=== PATIENT | male | born 1935 | race Caucasian/White ===

== ENCOUNTER 2019-06-02 12:35 | Emergency (ER) | payer BC, MEDICARE ==
[2019-06-02] MEDS ORDERED: Aspirin 81 MG Tab.Chew PO ONE (12:46)
--- NOTE | 2019-06-02 12:50 | EDM.PDOC ---
ED HPI GENERAL MEDICAL PROBLEM - General Chief Complaint: Chest Pain Stated Complaint: CHEST PAIN Time Seen by Provider: 06/02/19 12:35 Source of Information: Reports: Patient History Limitations: Reports: No Limitations - History of Present Illness INITIAL COMMENTS - FREE TEXT/NARRATIVE: 83-year-old male with no known previous coronary artery disease history resides with chest pain for the past 12 hours, worsening over the past 2-3 hours. It is substernal radiating into the shoulders. Chronic shortness of breath, not worse than baseline. Some diaphoresis. No nausea or vomiting. On arrival an EKG was done which appears to have ST elevation with reciprocal changes in the anterior leads. Onset: Gradual (Symptoms started overnight and start time is somewhat nonspecific and unknown) Associated Symptoms: Reports: No Other Symptoms chest Pain Score (Numeric/FACES): 2 - Related Data Allergies Allergy/AdvReac Type Severity Reaction Status Date / Time No Known Allergies Allergy Verified 05/27/18 09:52 Home Meds: Home Meds Acetaminophen [Tylenol] 650 mg PO Q6H PRN 05/26/18 [History] Albuterol Sulfate [Proair Hfa] 2 puff IH Q6H PRN 05/26/18 [History] Budesonide/Formoterol [Symbicort 80-4.5 MCG] 2 puff INH BID 05/26/18 [History] Cholecalciferol (Vitamin D3) [Vitamin D3] 1,000 units PO DAILY 05/26/18 [History ] Docusate Sodium [Colace] 100 mg PO TID 05/26/18 [History] Fexofenadine [Charisse] 180 mg PO DAILY 05/26/18 [History] Gabapentin [Neurontin] 600 mg PO Q6H 05/26/18 [History] Hydrocortisone [Hydrocortisone 2.5% Crm] 1 applic TOP BID PRN 05/26/18 [History] Hydroxychloroquine Sulfate [Plaquenil] 200 mg PO DAILY 05/26/18 [History] Multivitamin with Minerals [Multiple Vitamin] 1 tab PO DAILY 05/26/18 [History] Omeprazole 40 mg PO DAILY 05/26/18 [History] Tacrolimus [Protopic 0.1% Oint] 1 applic TOP BID 05/26/18 [History] Terazosin [Hytrin] 5 mg PO BEDTIME 05/26/18 [History] azaTHIOprine [Imuran] 150 mg PO DAILY 05/26/18 [History] traMADol HCl [Ultram] 50 - 100 mg PO BID PRN 05/26/18 [History] Past Medical History HEENT History: Reports: Cataract, Impaired Vision Respiratory History: Reports: Other (See Below) 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 Denies: Fever, Chills HEENT: Reports: No Symptoms Respiratory: Reports: Shortness of Breath (Chronic and stable). Denies: Cough Cardiovascular: Reports: Chest Pain (Substernal radiating into both shoulders) GI/Abdominal: Denies: Abdominal Pain, Nausea, Vomiting : Reports: No Symptoms Skin: Reports: Diaphoresis Neurological: Reports: Other (Chronic numbness in his feet) Psychiatric: Reports: No Symptoms ED EXAM, GENERAL - Physical Exam Exam: See Below Exam Limited By: No Limitations General Appearance: Alert, No Apparent Distress Eye Exam: Bilateral Eye: Other (Appears to have a left "lazy eye" or disconjugate gaze) Head: Atraumatic Respiratory/Chest: No Respiratory Distress, Wheezing (A few scattered expiratory wheezes are heard) Cardiovascular: Regular Rate, Rhythm, Tachycardia GI/Abdominal: Soft, Non-Tender Extremities: Normal Inspection, Arm Pain. No: Pedal Edema Neurological: Alert, Oriented, No Motor/Sensory Deficits Psychiatric: Normal Affect, Normal Mood Skin Exam: Warm, Dry EKG INTERPRETATION ST-T: Elevated (Inferior elevation in leads 2 and aVF, reciprocal changes in anterior leads.) Comparison: NA - No Prior EKG Course - Vital Signs Last Recorded V/S: Last Vital Signs Temp 97.8 F 06/02/19 12:50 Pulse 117 H 06/02/19 12:50 Resp 19 06/02/19 12:50 BP 112/80 06/02/19 12:50 Pulse Ox 94 L 06/02/19 12:50 - Orders/Labs/Meds Orders: Active Orders 24 hr Category Date Time Status EKG Documentation Completion [RC] STAT Care 06/02/19 12:47 Active Labs: Laboratory Tests 06/02/19 06/02/19 Range/Units 12:47 12:51 WBC 9.2 (4.5-11.0) K/uL RBC 3.60 L (4.30-5.90) M/uL Hgb 13.3 (12.0-15.0) g/dL Hct 37.3 L (40.0-54.0) % MCV 104 H (80-98) fL MCH 37 H (27-31) pg MCHC 36 (32-36) % Plt Count 222 (150-400) K/uL Neut % (Auto) 81 H (36-66) % Lymph % (Auto) 9 L (24-44) % Brule % (Auto) 9 H (2-6) % Eos % (Auto) 2 (2-4) % Baso % (Auto) 0 (0-1) % Sodium 132 L (140-148) mmol/L Potassium 4.2 (3.6-5.2) mmol/L Chloride 96 L (100-108) mmol/L Carbon Dioxide 26 (21-32) mmol/L Anion Gap 14.2 H (5.0-14.0) mmol/L BUN 16 (7-18) mg/dL Creatinine 1.2 (0.8-1.3) mg/dL Est Cr Clr Drug Dosing 47.31 mL/min Estimated GFR (MDRD) 58 L (>60) Glucose 113 H (74-106) mg/dL Calcium 9.3 (8.5-10.1) mg/dL Total Bilirubin 0.6 (0.2-1.0) mg/dL AST 35 (15-37) U/L ALT 24 (12-78) U/L Alkaline Phosphatase 77 (46-116) U/L Troponin I 0.843 H* (0.000-0.056) ng/mL Total Protein 8.2 (6.4-8.2) g/dL Albumin 3.2 L (3.4-5.0) g/dL Globulin 5.0 H (2.3-3.5) g/dL Albumin/Globulin Ratio 0.6 L (1.2-2.2) Meds: Medications Discontinued Medications Generic Name Dose Route Start Last Admin Trade Name Leann PRN Reason Stop Dose Admin Aspirin 324 mg 06/02/19 12:46 06/02/19 12:50 Aspirin PO 06/02/19 12:47 324 mg ONETIME ONE Administration Heparin Sodium (Porcine) 5,000 units 06/02/19 12:55 06/02/19 12:58 Heparin Sodium IVPUSH 06/02/19 12:56 5,000 units ONETIME ONE Administration Heparin Sodium/Dextrose 25,000 units in 500 mls @ 20 mls/hr 06/02/19 13:00 13:06 Heparin 25,000 Units In D5w 500 Ml IV 1,000 units/hr TITRATE ESTEBAN 20 mls/hr Administration Protocol 1,000 UNITS/HR - Re-Assessments/Exams Free Text/Narrative Re-Assessment/Exam: 06/02/19 13:05 The symptom patterns are typical of angina or IA, combined with the EKG a STEMI is likely. CBC CMP INR and troponin were obtained, the patient was given 324 mg of chewable aspirin. Phone consultation with cardiology in [facility] was obtained. EKG was faxed and awaiting further instructions. 06/02/19 13:[address] May, [facility] agreed a STEMI was possible and patient will be taken to the catheter lab. 5000 units of heparin were given as a bolus and 1000 units an hour and he was transferred urgently up to [place] in [place] for intervention. His pain was improved but still present. 06/02/19 13:55 As the patient was being discharged troponin returned elevated at 0.80. This was relayed to [place]. CBC was unremarkable. Departure - Departure Time of Disposition: 13:32 Disposition: DC/Tfer to Other Reason for Transfer *Q: Primary PCI Indicated Clinical Impression: Acute myocardial infarction Qualifiers: Myocardial infarction type: ST elevation myocardial infarction Involved coronary artery: unspecified coronary artery Qualified Code(s): I21.3 - ST elevation (STEMI) myocardial infarction of unspecified site Referrals: PCP,None [Primary Care Provider] - Forms: ED Department Discharge Care Plan Goals: patient will be urgently transfer to [facility] for acute coronary intervention and treatment, heparin will be running in route. - My Orders Last 24 Hours: My Active Orders 06/02/19 12:47 EKG Documentation Completion [RC] STAT - Assessment/Plan Last 24 Hours: My Active Orders 06/02/19 12:47 EKG Documentation Completion [RC] STAT
[2019-06-02] MEDS ORDERED: Heparin Sodium 5,000 Units/ML Vial IVPUSH ONE (12:55)
[2019-06-02] MEDS ORDERED: Heparin Sodium/D5W 25,000 UNITS/500 ML BAG IV SCH (13:00)
== END 2019-06-02 13:32 | disposition other institution (70) ==
LOC: JP.ED 12:35
DX: I21.3 ST elevation (STEMI) myocardial infarction of unspecified site (principal); Z79.899 Other long term (current) drug therapy
CPT/HCPCS: 36415; 80053; 84484; 85025; 93005; 96374; 99285; A9270; J1644

== ENCOUNTER 2020-03-26 06:50 | Day surgery (SDC) | payer MEDICARE, OTHER ==
[2020-03-26] MEDS ORDERED: fentaNYL 100 MCG/2 ML SDV ONE (06:52)
[2020-03-26] MEDS ORDERED: Propofol 200 MG/20 ML SDV ONE (06:52)
[2020-03-26] MEDS ORDERED: Sodium Chloride 0.9% 1,000 ML IV SCH (07:15)
--- NOTE | 2020-03-27 08:34 | OR ---
DATE OF PROCEDURE: 03/26/2020 SURGEON: Juan Ramon Cazares MD PROCEDURE: Esophagogastroduodenoscopy. FINDINGS: 1. Multiple gastric polyps (biopsied using cold biopsy forceps). 2. Inflammation at GE junction (biopsied multiple times using cold biopsy forceps). 3. Hiatal hernia, sliding, mild to moderate. COMPLICATIONS: None. DEVICE PROCESSING ENGINEER: None. ANESTHESIA: MAC. PREOPERATIVE DIAGNOSIS: Dysphagia. POSTOPERATIVE DIAGNOSIS: Dysphagia. RISKS: Risks, benefits, alternatives, and limitations including, but not limited to infection, bleeding, and perforation were explained to the patient who wished to proceed. PROCEDURE IN DETAIL: The patient was placed in left lateral decubitus position. EGD scope was introduced and advanced to the second part of the duodenum. No evidence of duodenitis or ulceration was noted. The scope was brought back to the stomach. The patient had multiple polyps, several of these were biopsied using cold biopsy forceps. On retroflex, the patient has a small hiatal hernia, which does slide. At the GE junction, there was inflammation and striation, this was biopsied in all 4 quadrants using cold biopsy forceps. The remaining esophagus was normal, and the patient tolerated the procedure well. Juan Ramon Cazares MD /[id number]
== END 2020-03-26 09:57 | disposition home or self-care (01) ==
LOC: JP.SDS 06:50
PROVIDERS: ATTEND Surgery
DX: K31.7 Polyp of stomach and duodenum (principal); K31.89 Other diseases of stomach and duodenum; Z11.59 Encounter for screening for other viral diseases; K29.70 Gastritis, unspecified, without bleeding; K44.9 Diaphragmatic hernia without obstruction or gangrene; K21.0 Gastro-esophageal reflux disease with esophagitis
CPT/HCPCS: 43239; J2704; J3010; J7030; U0002; 88305

== ENCOUNTER 2021-05-23 12:54 | Emergency (ER) | payer MEDICARE, OTHER ==
[2021-05-23] MEDS ORDERED: Lidocaine 2% Jelly 10 ML Urojet MUCMEM ONE (15:57)
--- NOTE | 2021-05-23 16:48 | EDM.PDOC ---
ED HPI GENERAL MEDICAL PROBLEM - General Chief Complaint: Genitourinary Problem Stated Complaint: CATHADER IN WRONG-BLEEDING Time Seen by Provider: 05/23/21 16:45 Source of Information: Reports: Patient, RN Notes Reviewed History Limitations: Reports: No Limitations - History of Present Illness INITIAL COMMENTS - FREE TEXT/NARRATIVE: 85-year-old gentleman presents emergency department today with catheter dysfunction he has a neurogenic bladder catheter is usually changed by his spouse however she could not get the catheter placed today and there was blood clots and blood coming from his penis. - Related Data Allergies Allergy/AdvReac Type Severity Reaction Status Date / Time enviromental Allergy Mild Sneezing Uncoded 05/23/21 14:52 Home Meds: Home Meds Acetaminophen [Tylenol] 650 mg PO Q6H PRN 05/26/18 [History] Albuterol Sulfate [Proair Hfa] 2 puff IH Q6H PRN 05/26/18 [History] Budesonide/Formoterol [Symbicort 80-4.5 MCG] 2 puff INH BID 05/26/18 [History] Cholecalciferol (Vitamin D3) [Vitamin D3] 1,000 units PO DAILY 05/26/18 [History] Docusate Sodium [Colace] 100 mg PO DAILY 05/26/18 [History] Gabapentin [Neurontin] 600 mg PO Q6H 05/26/18 [History] Hydroxychloroquine Sulfate [Plaquenil] 200 mg PO DAILY 05/26/18 [History] Multivitamin with Minerals [Multiple Vitamin] 1 tab PO DAILY 05/26/18 [History] Omeprazole 20 mg PO DAILY 05/26/18 [History] Terazosin [Hytrin] 5 mg PO BEDTIME 05/26/18 [History] azaTHIOprine [Imuran] 125 mg PO DAILY 05/26/18 [History] traMADol HCl [Ultram] 50 - 100 mg PO BID PRN 05/26/18 [History] Apixaban [Eliquis] 5 mg PO BID 03/26/20 [History] Cetirizine [ZyrTEC] 10 mg PO DAILY 03/26/20 [History] Metoprolol Succinate [Toprol Xl] 12.5 mg PO DAILY 03/26/20 [History] predniSONE [Prednisone] 5 mg PO ASDIRECTED 03/26/20 [History] Past Medical History HEENT History: Reports: Cataract, Impaired Vision Cardiovascular History: Reports: Arrhythmia, CAD, High Cholesterol Respiratory History: Reports: Other (See Below) 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 Gastrointestinal History: Reports: GERD, Hiatal Hernia Genitourinary History: Reports: Retention, Urinary Other Genitourinary History: continuous decker catheter Musculoskeletal History: Reports: Arthritis, Back Pain, Chronic, Neck Pain, Chronic Neurological History: Reports: None Immunologic History: Reports: Other (See Below) Other Immunologic History: Lupus Dermatologic History: Reports: Other (See Below) Other Dermatologic History: Lupus - Infectious Disease History Infectious Disease History: Reports: Chicken Pox, Measles, Mumps - Past Surgical History HEENT Surgical History: Reports: Cataract Surgery Cardiovascular Surgical History: Reports: Carotid Stents Respiratory Surgical History: Reports: None GI Surgical History: Reports: Appendectomy, Colonoscopy, EGD, Hernia Repair /Other, Other (See Below) Other GI Surgeries/Procedures: avelino Neurological Surgical History: Reports: None Musculoskeletal Surgical History: Reports: None Social & Family History - Family History Family Medical History: No Pertinent Family History - Tobacco Use Tobacco Use Status *Q: Never Tobacco User - Caffeine Use Caffeine Use: Reports: Coffee - Alcohol Use Days Per Week of Alcohol Use: 7 Number of Drinks Per Day: 1 Total Drinks Per Week: 7 - Recreational Drug Use Recreational Drug Use: No ED ROS GENERAL - Review of Systems Review Of Systems: See Below : Reports: Urinary Retention ED EXAM, RENAL/ - Physical Exam Exam: See Below Text/Narrative:: Initial examination by nursing staff revealed 150 cc of urine by bladder scan catheter was changed by nursing staff produce clear urine no difficulty passing the catheter. Exam Limited By: No Limitations General Appearance: Alert, WD/WN, No Apparent Distress Respiratory/Chest: No Respiratory Distress Course - Vital Signs Last Recorded V/S: Last Vital Signs Temp 96.4 F L 05/23/21 15:04 Pulse 81 05/23/21 15:04 Resp 16 05/23/21 15:04 BP 129/77 05/23/21 15:04 Pulse Ox 96 05/23/21 15:04 - Orders/Labs/Meds Orders: Active Orders 24 hr Category Date Time Status Bladder Scan [RC] ASDIRECTED Care 05/23/21 16:27 Active Decker Catheter Insertion [Insert Urinary Catheter] [OM. Care 05/23/21 16:30 Ordered PC] Q24H Urinary Catheter Assessment [RC] ASDIRECTED Care 05/23/21 16:29 Active Meds: Medications Discontinued Medications Generic Name Dose Route Start Last Admin Trade Name Leann PRN Reason Stop Dose Admin Lidocaine HCl 10 ml 05/23/21 15:57 05/23/21 16:11 Lidocaine 2% Jelly 10 Ml Urojet MUCMEM 05/23/21 15:58 10 ml ONETIME ONE Administration Departure - Departure Time of Disposition: 16:47 Disposition: Home, Self-Care 01 Condition: Fair Clinical Impression: Urinary catheter dysfunction Qualifiers: Encounter type: initial encounter Qualified Code(s): T83.018A - Breakdown (mechanical) of other urinary catheter, initial encounter - Discharge Information Instructions: Indwelling Urinary Catheter Care, Adult Referrals: PCP,None [Primary Care Provider] - Additional Instructions: Follow-up with primary care as needed call return to the emergency department worsening of symptoms Sepsis Event Note (ED) - Evaluation Sepsis Screening Result: No Definite Risk - Focused Exam Vital Signs: Vital Signs Temp Pulse Resp BP Pulse Ox 05/23/21 15:04 96.4 F L 81 16 129/77 96 - My Orders Last 24 Hours: My Active Orders 05/23/21 16:27 Bladder Scan [RC] ASDIRECTED 05/23/21 16:29 Urinary Catheter Assessment [RC] ASDIRECTED 05/23/21 16:30 Decker Catheter Insertion [Insert Urinary Catheter] [OM.PC] Q24H - Assessment/Plan Last 24 Hours: My Active Orders 05/23/21 16:27 Bladder Scan [RC] ASDIRECTED 05/23/21 16:29 Urinary Catheter Assessment [RC] ASDIRECTED 05/23/21 16:30 Decker Catheter Insertion [Insert Urinary Catheter] [OM.PC] Q24H Plan: Assessment Acuity = acute Site and laterality = catheter dysfunction Etiology = unknown Manifestations = none Location of injury = Home Lab values = none Plan Follow-up primary care as needed This note was dictated using DocSea voice recognition software please call with any questions on syntax or grammar.
== END 2021-05-23 16:55 | disposition home or self-care (01) ==
LOC: JP.ED 12:54
DX: T83.018A Breakdown (mechanical) of other urinary catheter, initial encounter (principal); I25.10 Atherosclerotic heart disease of native coronary artery without angina pectoris; E78.00 Pure hypercholesterolemia, unspecified; K21.9 Gastro-esophageal reflux disease without esophagitis; Z91.09 Other allergy status, other than to drugs and biological substances; Z79.899 Other long term (current) drug therapy
CPT/HCPCS: 51702; 99283-25

== ENCOUNTER 2021-05-28 17:31 | Inpatient (IN) | payer OTHER, MEDICARE ==
--- NOTE | 2021-05-28 18:11 | EDM.PDOC ---
ED HPI GENERAL MEDICAL PROBLEM - General Chief Complaint: Chest Pain Stated Complaint: CHEST PAIN Time Seen by Provider: 05/28/21 18:00 Source of Information: Reports: Patient, EMS History Limitations: Reports: No Limitations - History of Present Illness INITIAL COMMENTS - FREE TEXT/NARRATIVE: 85-year-old male with recently diagnosed small cell lung cancer, presents emergency room by ambulance with increasing shortness of breath, chest pain, hypoxia and weakness. A biopsy was done on May 10, they just got the results yesterday that it is cancer. They do not have a treatment plan at this time. He feels chilled but is not feverish, he is mildly hypotensive. When EMS arrived at home he had a O2 saturations in the mid to upper 70s, after oxygen was applied in high flow his chest pain resolved but his O2 sats are still struggling to stay above 90. He feels better. Onset: Gradual Duration: Day(s): (Worsening especially the last 2 or 3 days) Improves with: Reports: Other (Oxygen) Associated Symptoms: Reports: Cough, Fever/Chills, Malaise, Shortness of Breath, Weakness - Related Data Allergies Allergy/AdvReac Type Severity Reaction Status Date / Time enviromental Allergy Mild Sneezing Uncoded 05/28/21 21:20 Home Meds: Home Meds Acetaminophen [Tylenol] 650 mg PO Q6H PRN 05/26/18 [History] Albuterol Sulfate [Proair Hfa] 2 puff IH Q6H PRN 05/26/18 [History] Budesonide/Formoterol [Symbicort 80-4.5 MCG] 2 puff INH BID 05/26/18 [History] Cholecalciferol (Vitamin D3) [Vitamin D3] 1,000 units PO DAILY 05/26/18 [History] Docusate Sodium [Colace] 100 mg PO DAILY 05/26/18 [History] Gabapentin [Neurontin] 600 mg PO Q6H 05/26/18 [History] Hydroxychloroquine Sulfate [Plaquenil] 200 mg PO DAILY 05/26/18 [History] Multivitamin with Minerals [Multiple Vitamin] 1 tab PO DAILY 05/26/18 [History] Omeprazole 20 mg PO DAILY 05/26/18 [History] azaTHIOprine [Imuran] 125 mg PO DAILY 05/26/18 [History] traMADol HCl [Ultram] 50 - 100 mg PO BID PRN 05/26/18 [History] Apixaban [Eliquis] 5 mg PO BID 03/26/20 [History] Cetirizine [ZyrTEC] 10 mg PO DAILY 03/26/20 [History] Metoprolol Succinate [Toprol Xl] 12.5 mg PO DAILY 03/26/20 [History] predniSONE [Prednisone] 5 mg PO ASDIRECTED 03/26/20 [History] Aspirin [Halfprin] 81 mg PO DAILY 05/28/21 [History] DULoxetine [Cymbalta] 20 mg PO DAILY 05/28/21 [History] Tamsulosin [Tamsulosin 24 Hr] 0.4 mg PO DAILY 05/28/21 [History] Past Medical History HEENT History: Reports: Cataract, Impaired Vision Cardiovascular History: Reports: Arrhythmia, CAD, High Cholesterol Respiratory History: Reports: Other (See Below) 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. small cell lung cancer Gastrointestinal History: Reports: GERD, Hiatal Hernia Genitourinary History: Reports: Retention, Urinary Other Genitourinary History: continuous decker catheter Musculoskeletal History: Reports: Arthritis, Back Pain, Chronic, Neck Pain, Chronic Neurological History: Reports: None Immunologic History: Reports: Other (See Below) Other Immunologic History: Lupus Oncologic (Cancer) History: Reports: Lung Dermatologic History: Reports: Other (See Below) Other Dermatologic History: Lupus - Infectious Disease History Infectious Disease History: Reports: Chicken Pox, Measles, Mumps - Past Surgical History HEENT Surgical History: Reports: Cataract Surgery Cardiovascular Surgical History: Reports: Carotid Stents, Coronary Artery Stent Respiratory Surgical History: Reports: Lung Biopsies GI Surgical History: Reports: Appendectomy, Colonoscopy, EGD, Hernia Repair/Other, Other (See Below) Other GI Surgeries/Procedures: avelino Social & Family History - Family History Family Medical History: No Pertinent Family History - Tobacco Use Tobacco Use Status *Q: Former Tobacco User Used Tobacco, but Quit: Yes Month/Year Tobacco Last Used: 40 years - Caffeine Use Caffeine Use: Reports: Coffee - Recreational Drug Use Recreational Drug Use: No ED ROS GENERAL - Review of Systems Review Of Systems: See Below Constitutional: Reports: Fever, Chills, Malaise HEENT: Denies: Throat Pain Respiratory: Reports: Shortness of Breath, Cough. Denies: Sputum, Hemoptysis Cardiovascular: Reports: Chest Pain. Denies: Palpitations GI/Abdominal: Denies: Abdominal Pain, Nausea, Vomiting Skin: Reports: Bruising Neurological: Reports: Dizziness, Weakness. Denies: Headache Psychiatric: Reports: No Symptoms ED EXAM, GENERAL - Physical Exam Exam: See Below Exam Limited By: No Limitations General Appearance: Alert, Mild Distress (Mild increased respiratory effort but doing much better on high flow O2, able to speak in sentences) Eye Exam: Bilateral Eye: EOMI Head: Atraumatic Neck: Non-Tender Respiratory/Chest: Rhonchi (Loud significant rhonchi are heard in both lungs posteriorly, the left lung anteriorly with decreased sounds in both bases) Cardiovascular: Regular Rate, Rhythm, Tachycardia GI/Abdominal: Soft, Non-Tender Extremities: Slow Capillary Refill. No: Pedal Edema Neurological: Alert, Oriented, No Motor/Sensory Deficits (Generalized weakness but no asymmetry) Skin Exam: Warm, Dry Course - Vital Signs Last Recorded V/S: Last Vital Signs Temp 97.8 F 05/28/21 21:25 Pulse 115 H 05/28/21 21:25 Resp 40 H 05/28/21 21:25 BP 87/57 L 05/28/21 21:25 Pulse Ox 92 L 05/28/21 22:12 - Orders/Labs/Meds Orders: Active Orders 24 hr Category Date Time Status Chest 1V Frontal [CR] Stat Exams 05/28/21 18:05 Taken CULTURE BLOOD [BC] Urgent Lab 05/28/21 18:05 Received CULTURE BLOOD [BC] Urgent Lab 05/28/21 18:20 Received Blood Culture x2 Reflex Set [OM.PC] Urgent Oth 05/28/21 18:04 Ordered Medication Orders Acetaminophen (Acetaminophen 325 Mg Tab, 50 Tab Bulk Bottle) 650 mg PO Q6H PRN PRN Reason: Pain Albuterol/Ipratropium (Albuterol/Ipratropium 3.0-0.5 Mg/3 Ml Neb Soln) 3 ml NEB Q4H PRN PRN Reason: Shortness of Breath Apixaban (Apixaban 5 Mg Tab) 5 mg PO BID ESTEBAN Aspirin (Aspirin 81 Mg Tab.Ec) 81 mg PO DAILY ESTEBAN Azathioprine (Azathioprine 50 Mg Tab) 125 mg PO DAILY ESTEBAN Cetirizine HCl (Cetirizine 10 Mg Tab) 10 mg PO DAILY ESTEBAN Docusate Sodium (Docusate Sodium 100 Mg Cap) 100 mg PO DAILY [facility] Duloxetine HCl (Duloxetine 20 Mg Cap) 20 mg PO DAILY [facility] Gabapentin (Gabapentin 300 Mg Cap) 600 mg PO Q6H [facility] Last Admin: 05/28/21 22:19 Dose: 600 mg Documented by: [id number] Hydroxychloroquine Sulfate (Hydroxychloroquine 200 Mg Tab) 200 mg PO DAILY [facility] Metoprolol Succinate (Metoprolol Succinate 25 Mg Tab.Er) 12.5 mg PO DAILY [facility] Mometasone Furoate/Formoterol Fumar (Formoterol/Mometasone 100-5 Mcg 8.8 Gm Inhaler) 2 puff IH BID [facility] Morphine Sulfate (Morphine 2 Mg/Ml Syringe) 2 mg IVPUSH Q1H PRN PRN Reason: Pain Last Admin: 05/28/21 22:18 Dose: 2 mg Documented by: [email or web address] Pantoprazole Sodium (Pantoprazole 40 Mg Tab.Cr) 40 mg PO ACBREAKFAST [facility] Prednisone (Prednisone 5 Mg Tab) 5 mg PO ASDIRECTED [facility] Sodium Chloride (Sodium Chloride 0.9% 10 Ml Syringe) 10 ml FLUSH ASDIRECTED PRN PRN Reason: Keep Vein Open Tramadol HCl (Tramadol 50 Mg Tab) 100 mg PO BID PRN PRN Reason: Pain Labs: Laboratory Tests 05/28/21 05/28/21 05/28/21 Range/Units 18:14 18:20 18:20 WBC 12.7 H (4.5-11.0) K/uL RBC 2.70 L (4.30-5.90) M/uL Hgb 10.6 L D (12.0-15.0) g/dL Hct 29.9 L (40.0-54.0) % MCV 111 H (80-98) fL MCH 39 H (27-31) pg MCHC 36 (32-36) % Plt Count 258 (150-400) K/uL Neut % (Auto) 86.7 H (36-66) % Lymph % (Auto) 2.7 L (24-44) % [place]ac[place] % (Auto) 10.1 H (2-6) % Eos % (Auto) 0.4 L (2-4) % Baso % (Auto) 0.1 (0-1) % Sodium 125 L (140-148) mmol/L Potassium 4.8 (3.6-5.2) mmol/L Chloride 90 L (100-108) mmol/L Carbon Dioxide 23 (21-32) mmol/L Anion Gap 16.8 H (5.0-14.0) mmol/L BUN 18 (7-18) mg/dL Creatinine 1.4 H (0.8-1.3) mg/dL Est Cr Clr Drug Dosing 36.64 mL/min Estimated GFR (MDRD) 48 L (>60) Glucose 84 (74-106) mg/dL Lactic Acid (0.4-2.0) mmol/L Calcium 9.2 (8.5-10.1) mg/dL Total Bilirubin 0.7 (0.2-1.0) mg/dL AST 34 (15-37) U/L ALT 20 (12-78) U/L Alkaline Phosphatase 85 (46-116) U/L Troponin I (0.000-0.056) ng/mL Total Protein 7.9 (6.4-8.2) g/dL Albumin 2.6 L (3.4-5.0) g/dL Globulin 5.3 H (2.3-3.5) g/dL Albumin/Globulin Ratio 0.5 L (1.2-2.2) Urine Color (YELLOW) Urine Appearance (CLEAR) Urine pH (5.0-8.0) Ur Specific Viola (1.008-1.030) Urine Protein (NEGATIVE) mg/dL Urine Glucose (UA) (NEGATIVE) mg/dL Urine Ketones (NEGATIVE) mg/dL Urine Occult Blood (NEGATIVE) Urine Nitrite (NEGATIVE) Urine Bilirubin (NEGATIVE) Urine Urobilinogen (0.2-1.0) EU/dL Ur Leukocyte Esterase (NEGATIVE) Urine RBC (0-5) Urine WBC (0-5) Ur Epithelial Cells Amorphous Sediment Urine Bacteria Urine Mucus SARS CoV-2 RNA Rapid DOC Negative 05/28/21 05/28/21 05/28/21 Range/Units 18:20 18:20 19:48 WBC (4.5-11.0) K/uL RBC (4.30-5.90) M/uL Hgb (12.0-15.0) g/dL Hct (40.0-54.0) % MCV (80-98) fL MCH (27-31) pg MCHC (32-36) % Plt Count (150-400) K/uL Neut % (Auto) (36-66) % Lymph % (Auto) (24-44) % [place]ac[place] % (Auto) (2-6) % Eos % (Auto) (2-4) % Baso % (Auto) (0-1) % Sodium (140-148) mmol/L Potassium (3.6-5.2) mmol/L Chloride (100-108) mmol/L Carbon Dioxide (21-32) mmol/L Anion Gap (5.0-14.0) mmol/L BUN (7-18) mg/dL Creatinine (0.8-1.3) mg/dL Est Cr Clr Drug Dosing mL/min Estimated GFR (MDRD) (>60) Glucose (74-106) mg/dL Lactic Acid 4.2 H (0.4-2.0) mmol/L Calcium (8.5-10.1) mg/dL Total Bilirubin (0.2-1.0) mg/dL AST (15-37) U/L ALT (12-78) U/L Alkaline Phosphatase (46-116) U/L Troponin I 0.122 H* (0.000-0.056) ng/mL Total Protein (6.4-8.2) g/dL Albumin (3.4-5.0) g/dL Globulin (2.3-3.5) g/dL Albumin/Globulin Ratio (1.2-2.2) Urine Color Yellow (YELLOW) Urine Appearance Slightly cloudy A (CLEAR) Urine pH 5.5 (5.0-8.0) Ur Specific Viola 1.015 (1.008-1.030) Urine Protein Negative (NEGATIVE) mg/dL Urine Glucose (UA) Negative (NEGATIVE) mg/dL Urine Ketones Negative (NEGATIVE) mg/dL Urine Occult Blood Moderate H (NEGATIVE) Urine Nitrite Negative (NEGATIVE) Urine Bilirubin Negative (NEGATIVE) Urine Urobilinogen 0.2 (0.2-1.0) EU/dL Ur Leukocyte Esterase Small H (NEGATIVE) Urine RBC 5-10 H (0-5) Urine WBC 5-10 H (0-5) Ur Epithelial Cells Not seen Amorphous Sediment Not seen Urine Bacteria Moderate Urine Mucus Not seen SARS CoV-2 RNA Rapid DOC Meds: Medications Generic Name Dose Route Start Last Admin Trade Name Freq PRN Reason Stop Dose Admin Acetaminophen 650 mg 05/28/21 21:43 Acetaminophen 325 Mg Tab, 50 Tab Bulk Bottle PO Q6H PRN Pain Albuterol/Ipratropium 3 ml 05/28/21 21:46 Albuterol/Ipratropium 3.0-0.5 Mg/3 Ml Neb Soln NEB Q4H PRN Shortness of Breath Apixaban 5 mg 05/29/21 09:00 Apixaban 5 Mg Tab PO BID [facility] Aspirin 81 mg 05/29/21 09:00 Aspirin 81 Mg Tab.Ec PO DAILY [facility] Azathioprine 125 mg 05/29/21 09:00 Azathioprine 50 Mg Tab PO DAILY [facility] Cetirizine HCl 10 mg 05/29/21 09:00 Cetirizine 10 Mg Tab PO DAILY [facility] Docusate Sodium 100 mg 05/29/21 09:00 Docusate Sodium 100 Mg Cap PO DAILY [facility] Duloxetine HCl 20 mg 05/29/21 09:00 Duloxetine 20 Mg Cap PO DAILY [facility] Gabapentin 600 mg 05/28/21 21:45 05/28/21 22:19 Gabapentin 300 Mg Cap PO 600 mg Q6H ESTEBAN Administration Hydroxychloroquine Sulfate 200 mg 05/29/21 09:00 Hydroxychloroquine 200 Mg Tab PO DAILY [facility] Metoprolol Succinate 12.5 mg 05/29/21 09:00 Metoprolol Succinate 25 Mg Tab.Er PO DAILY [facility] Mometasone Furoate/Formoterol Fumar 2 puff 05/29/21 09:00 Formoterol/Mometasone 100-5 Mcg 8.8 Gm Inhaler IH BID [facility] Morphine Sulfate 2 mg 05/28/21 21:46 05/28/21 22:18 Morphine 2 Mg/Ml Syringe IVPUSH 2 mg Q1H PRN Administration Pain Pantoprazole Sodium 40 mg 05/29/21 07:30 Pantoprazole 40 Mg Tab.Cr PO ACBREAKFAST [facility] Prednisone 5 mg 05/28/21 21:45 Prednisone 5 Mg Tab PO ASDIRECTED ESTEBAN Sodium Chloride 10 ml 05/28/21 21:48 Sodium Chloride 0.9% 10 Ml Syringe FLUSH ASDIRECTED PRN Keep Vein Open Tramadol HCl 100 mg 05/28/21 21:43 Tramadol 50 Mg Tab PO BID PRN Pain Discontinued Medications Generic Name Dose Route Start Last Admin Trade Name Freq PRN Reason Stop Dose Admin Furosemide 40 mg 05/28/21 18:25 05/28/21 18:45 Furosemide 40 Mg/4 Ml Vial IVPUSH 05/28/21 18:26 40 mg ONETIME ONE Administration Ceftriaxone Sodium 1 gm/ 50 mls @ 100 mls/hr 05/28/21 18:26 05/28/21 18:51 Sodium Chloride IV 05/28/21 18:55 100 mls/hr ONETIME ONE Administration Azithromycin 500 mg/ Sodium 250 mls @ 250 mls/hr 05/28/21 18:52 05/28/21 20:15 Chloride IV 05/28/21 19:51 250 mls/hr ONETIME ONE Administration - Re-Assessments/Exams Free Text/Narrative Re-Assessment/Exam: 05/28/21 18:54 And IV was started, CBC, lactic acid, CMP and blood cultures were obtained. COVID-19 was tested and was negative. Chest x-ray was done which showed bilateral infiltrates and possible congestive failure, he was given 1 g of IV Rocephin, 40 mg of IV Lasix and this will be followed by 500 mg of IV Zithromax. Lactic acid returned elevated at 4.2, troponin mildly elevated at 0.12. White count is elevated at 12,700. 05/28/21 20:29 Patient continues to need fairly high flow oxygen to remain comfortable, however after further discussion between himself and his he decided to be admitted here for comfort measures only. Dr. Marino he agreed to admit the patient for treatment for pneumonia with superimposed congestive heart failure. The patient may need a hospice consult tomorrow. Departure - Departure Time of Disposition: 20:49 Disposition: Admitted As Inpatient 65 Clinical Impression: Small cell lung cancer in adult Bilateral pneumonia Qualifiers: Pneumonia type: due to unspecified organism Lung location: lower lobe of lung Qualified Code(s): J18.9 - Pneumonia, unspecified organism Congestive heart failure Qualifiers: Heart failure chronicity: acute on chronic - Discharge Information Sepsis Event Note (ED) - Evaluation Sepsis Screening Result: Possible Sepsis Risk - Focused Exam Vital Signs: Vital Signs Temp Pulse Resp BP Pulse Ox 05/28/21 20:33 113 H 39 H 108/73 88 L 05/28/21 19:55 117 H 43 H 136/89 86 L 05/28/21 19:49 116 H 40 H 106/70 84 L 05/28/21 18:22 115 H 32 H 107/68 83 L 05/28/21 17:59 119 H 31 H 88/51 L 86 L 05/28/21 17:54 97.3 F 113 H 32 H 99/50 L 91 L 05/28/21 17:37 97.3 F 113 H 18 99/50 L 87 L - My Orders Last 24 Hours: My Active Orders 05/28/21 18:04 Blood Culture x2 Reflex Set [OM.PC] Urgent 05/28/21 18:05 Chest 1V Frontal [CR] Stat CULTURE BLOOD [BC] Urgent 05/28/21 18:20 CULTURE BLOOD [BC] Urgent - Assessment/Plan Last 24 Hours: My Active Orders 05/28/21 18:04 Blood Culture x2 Reflex Set [OM.PC] Urgent 05/28/21 18:05 Chest 1V Frontal [CR] Stat CULTURE BLOOD [BC] Urgent 05/28/21 18:20 CULTURE BLOOD [BC] Urgent
[2021-05-28] MEDS ORDERED: Furosemide 40 MG/4 ML VIAL IVPUSH ONE (18:25)
[2021-05-28] MEDS ORDERED: cefTRIAXone 1 GM in Sodium Chloride 0.9% 50 ML IV ONE (18:26)
[2021-05-28] MEDS ORDERED: Azithromycin 500 MG in Sodium Chloride 0.9% 250 ML IV ONE (18:52)
[2021-05-28] MEDS ORDERED: Acetaminophen 325 MG Tab, 50 Tab Bulk Bottle PO PRN (21:43)
[2021-05-28] MEDS ORDERED: traMADol 50 MG Tab PO PRN (21:43)
[2021-05-28] MEDS ORDERED: predniSONE 5 MG Tab PO SCH (21:45)
[2021-05-28] MEDS ORDERED: Albuterol/Ipratropium 3.0-0.5 MG/3 ML Neb Soln NEB PRN (21:46)
[2021-05-28] MEDS ORDERED: Sodium Chloride 0.9% 10 ML Syringe FLUSH PRN (21:48)
[2021-05-28] MEDS: Morphine 2 MG/ML SYRINGE IVPUSH PRN (22:18)
[2021-05-28] MEDS: Gabapentin 300 MG Cap PO SCH (22:19)
--- NOTE | 2021-05-29 00:11 | HP ---
IDENTIFYING DATA: Mynor Graham is an 85-year-old male from [place], [place]. CHIEF COMPLAINT: Short of breath. HISTORY OF PRESENT ILLNESS: Elderly male, currently residing in their independent residence with his , has a history of chronic multiple health problems including coronary artery disease with 2-vessel stenting in 2019 as well as accompanying history of chronic arterial vasculitis, on immunosuppressant therapy, and pulmonary fibrosis with progressive respiratory impairment and hypoxia requiring nocturnal CPAP and daytime p.r.n. use of oxygen supplementation. He had recent hospitalization for reasons of dysphagia and food bolus impaction of the esophagus requiring evaluation and subsequent EGD. He has noted remote history of Lili fundoplication. He was found to have a large food bolus obstructing the esophagus, relieved with EGD with passage of food into the stomach. At that time, x-rays had revealed evidence of a probable pulmonary lesion confirmed by CT imaging. Late last week, he will undergo transcutaneous CT-directed needle biopsy at [facility] in [place]. Reports returned this week that he has a primary small cell carcinoma of the lung. He has not yet discussed potential treatment options with his medical caregivers. He has not had PET scan imaging to exclude metastatic disease and determine the extent of his primary malignancy. In the last 24 hours, he has developed increased shortness of breath accompanying his chronic cough and unchanging sputum production noting chronic clear to white mucoid production. He has had no purulent mucus or fevers and chills. Home oximetries have shown declining oximetry in spite of use of supplemental oxygen at 3 L/minute by nasal cannula. He therefore presented to the emergency room for evaluation. PAST MEDICAL HISTORY: As noted, chronic health problems include pulmonary fibrosis, history of vasculitis with lower extremity neuropathy, coronary artery disease, hypertension, and atrial fibrillation with anticoagulant therapy. PREVIOUS SURGERIES: Include cardiac catheterization and stenting in 2019. Additional surgeries include remote appendectomy, bilateral cataract surgery, EGD with release of esophageal impaction and remote Lili fundoplication. ALLERGIES: DENIES MEDICAL ALLERGIES. DOES HAVE A HISTORY OF REPORTED ENVIRONMENTAL ALLERGIES WITH SNEEZING AND CONGESTION. HABITS: Remote history of tobacco use, abstaining for greater than 40 years time. Caffeine intake is limited. Alcohol use of less than 1 drink per day. IMMUNIZATIONS: Does receive annual influenza vaccines through the [facility] and has had a 2-shot COVID series. Denies a history of active COVID disease. His had lab documented COVID infection in October of 2020 with subsequent recovery. CURRENT MEDICATIONS: Albuterol metered dose inhaler 2 puffs q.4 hours p.r.n.; apixaban 5 mg b.i.d.; aspirin 81 mg daily; atorvastatin 80 mg daily; azathioprine 50 mg tablets 100 mg q.a.m., 50 mg at h.s.; Symbicort 2 inhalations twice daily; cetirizine 10 mg q.a.m.; vitamin D3 1000 international units daily; docusate 100 mg daily p.r.n. constipation; duloxetine 20 mg daily; gabapentin 800 mg 4 times daily; hydroxychloroquine 200 mg q.a.m.; metoprolol succinate 12.5 mg at h.s.; multivitamins 1 tablet daily; niacin 250 mg daily; nitroglycerin 0.4 mg sublingually p.r.n. chest pain; omeprazole 20 mg daily; prednisone 5 mg daily as maintenance dose; terazosin 5 mg q.a.m.; Spiriva 2 inhalations daily; tramadol 50 mg daily p.r.n. pain of neuropathy. SOCIAL HISTORY: He is retired, residing with his . Most medical care is received at [facility]. He and providers have discussed, though have not arranged home care services. With recent cancer diagnosis, he is awaiting confirmation of oncology consultation. He generally performs ADLs independently, though with weakening state and weight loss, has required assistance of his . He has a chronic indwelling Rodriguez catheter with chronic urinary retention and incomplete bladder emptying. FAMILY HISTORY: As above. had COVID disease in October of 2020. No other recent acute familial history of respiratory illnesses. REVIEW OF SYSTEMS: NEUROLOGIC: Previous bilateral cataract extraction. Glasses are worn. Denies stroke, seizures, or focal weakness. Chronic peripheral neuropathy noted. CARDIAC: History of coronary artery disease and hypertension. No history of diabetes. Denies palpitations, syncope, or angina-like pain. RESPIRATORY: As above. No history of tuberculosis. GI: Esophageal dysmotility with chronic dysphagia, restricting diet to soft solids, avoidance of meat, and use of nutritional supplements on a daily basis. Denies dyspepsia, hepatitis, melena, or hematochezia. : Renal insufficiency and chronic urinary retention with indwelling Rodriguez catheter. MUSCULOSKELETAL: Generalized weakness. The pain in the lower extremities of neuropathy. PHYSICAL EXAMINATION: GENERAL: Appearance is that of an elderly weakened male with mild respiratory distress at time of presentation. VITAL SIGNS: Temperature 97.3 degrees Fahrenheit, pulse 117 and irregular, respiratory rate 43, with supplemental oxygen at 15 L by non-rebreather mask and O2 sats of 86%, blood pressure 136/89. HEENT: Hearing is mildly diminished. Canals are clear. No facial asymmetries. Nasal congestion is nominal. Oral mucosa is dry in appearance. NECK: Brisk irregular carotid pulses. No stridor, JVD, or carotid bruits are noted. LUNGS: Bronchial breath sounds bilaterally. Labored respiratory effort. Inspiratory rales bilaterally. No wheezes heard. No retractions. Symmetrically resonant. HEART: Irregular, without murmurs or gallops noted. Distant sounds secondary to overlying respiratory sounds. ABDOMEN: Nondistended with active sounds. No organomegaly. No guarding, rebound, or referred pain. Good femoral pulses. : Indwelling Rodriguez catheter with drainage of dilute-appearing urine. EXTREMITIES: Cool to touch. No current open lesions. Palpable posterior tibial pulses. Brisk capillary refill. LABORATORY DATA: On admission, WBC mildly elevated at 12.7 with 87% neutrophils, 2.7% lymphocytes, and 10% monocytes. Hemoglobin 10.6, hematocrit 29.9, platelet count 258,000. Sodium 125, potassium 4.8, BUN 18, creatinine 1.4, GFR 48, glucose 84, calcium 9.2, AST 34, alkaline phosphatase 85. Urinalysis, specific gravity of 1.015 with negative protein and glucose, moderate occult blood, 5 to 10 wbc's, 5 to 10 rbc's with indwelling Rodriguez catheter. Blood culture pending. Lactic acid elevated at 4.2. Troponin 0.122. Chest x-ray, bilateral infiltrative changes noted. Consider bilateral pneumonia versus fluid overload with congestive heart failure. IMPRESSION: 1. Acute respiratory distress secondary to presumptive pneumonia. 2. History of chronic pulmonary fibrosis with hypoxia and respiratory impairment. 3. Remote history of tobacco use, now abstaining. 4. Coronary artery disease, status post 2-vessel stenting in 2019. 5. Hypertension. 6. History of vasculitis with immunosuppressant therapy including Imuran, Plaquenil, and chronic steroid therapy. 7. Recently identified primary small cell carcinoma of the lung by transcutaneous pulmonary biopsy. 8. Chronic atrial fibrillation with Coumadin anticoagulant therapy. 9. Chronic urinary retention with indwelling Rodriguez catheter. 10.Esophageal dysmotility. Remote history of Lili fundoplication with chronic dysphagia. PLAN: The patient does have suggestion of significant respiratory impairment. In discussion in the emergency room as well as by review in the med/surg floor, he and his note he has decided to pursue a course of do not resuscitate, do not intubate. They desire respiratory support with supplemental oxygen, ongoing use of nocturnal CPAP, bronchodilator therapies, and antibiotics. They do not desire more aggressive ventilatory support or CPR and understand the seriousness of his current condition. We will continue with broad- spectrum antibiotics, bronchodilators administered by nebulizer therapy, and ongoing use of his oral maintenance therapies allow soft mechanical diet as well as nutritional supplements. Blood cultures are pending at the current time. Encourage bedrest with assistance to commode or when up in chair. We will continue also with chronic anticoagulant therapy with use of apixaban. In light of recently identified primary small cell carcinoma of the lung, if he does show evidence of improvement of his presumptive pneumonia, we will require followup with the [facility] to discuss arrangements for oncologic review and consultation regarding treatment options for his primary malignancy. He understands that current acute medical illness may potentially lead to his and does not require urgent referral to speciality services at the current time. Keven Marino MD /[id number]
[2021-05-29] MEDS: Morphine 2 MG/ML SYRINGE IVPUSH PRN ×6 (00:42→19:40)
[2021-05-29] MEDS: LORazepam ORAL Concentrate 1MG/0.5ML U/D BUCCAL PRN ×6 (01:53→18:27)
[2021-05-29] MEDS: Gabapentin 300 MG Cap PO SCH ×4 (04:24→23:59)
[2021-05-29] MEDS ORDERED: Pantoprazole 40 MG Tab.CR PO SCH (07:30)
[2021-05-29] MEDS ORDERED: Acetaminophen 325 MG Tab PO PRN (08:00)
[2021-05-29] MEDS ORDERED: cefTRIAXone 1 GM Vial IM SCH (08:30)
[2021-05-29] MEDS: Formoterol/Mometasone 100-5 MCG 8.8 GM Inhaler IH SCH ×2 (08:50→22:31)
[2021-05-29] MEDS: Apixaban 5 MG Tab PO SCH ×2 (08:50→22:31)
[2021-05-29] MEDS ORDERED: Aspirin 81 MG Tab.EC PO SCH (09:00)
[2021-05-29] MEDS ORDERED: cefTRIAXone 1 GM in Sodium Chloride 0.9% 50 ML IV SCH ×2 (09:00→18:00)
[2021-05-29] MEDS ORDERED: Hydroxychloroquine 200 MG Tab PO SCH (09:00)
[2021-05-29] MEDS ORDERED: Furosemide 40 MG/4 ML VIAL IVPUSH ONE (09:00)
[2021-05-29] MEDS ORDERED: DULoxetine 20 MG Cap PO SCH (09:00)
[2021-05-29] MEDS ORDERED: Cetirizine 10 MG Tab PO SCH (09:00)
[2021-05-29] MEDS ORDERED: Metoprolol Succinate 25 MG Tab.ER PO SCH (09:00)
[2021-05-29] MEDS ORDERED: Docusate Sodium 100 MG Cap PO SCH (09:00)
--- NOTE | 2021-05-29 10:05 | CRLCR ---
Final Report: INDICATION: Hypoxia. TECHNIQUE: One view. IMPRESSION: Patchy indistinct airspace opacities left greater than right lungs with low lung volumes. Pulmonary vascularity appears mildly prominent and background. Findings may be pulmonary edema or diffuse pneumonitis/pneumonia. COVID-19 pneumonia is in the differential. No pneumothorax or effusion. Air-fluid level behind the heart for a moderate-sized hiatus hernia. Dictated by Omkar Pope MD @ 05/29/2021 9:49:09 AM (Electronic Signature) [email or web address]
--- NOTE | 2021-05-29 10:19 | PN ---
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 He has a history of chronic hypoxia with nocturnal CPAP and daytime supplemental oxygen use and has had increased congestion and cough without fever. Through the nighttime, he had restlessness as well as persistent hypoxia in spite of high-flow oxygen therapies. He and understand that ventilatory support is not currently available and do not desire this as treatment option requesting less invasive means of treatment and comfort measures to be provided. He has received a combination of morphine and IV Ativan through the night with periods of restlessness with supplemental oxygen at 10 L by non-rebreather and nasal cannula flow. He has maintained O2 sats in the 70s and 80s. He has had congestion and lethargy noted. His understands that his presentation is critical and likely terminal as we continue with IV antibiotic therapy and await culture reports. OBJECTIVE: VITAL SIGNS: Temperature 36.4, pulse 97, blood pressure 89/61, respiratory rate 32, oxygen saturation 77% with oxygen supplementation. NECK: No JVD. LUNGS: Expiratory rhonchi. Coarse rhonchorous sounding bilaterally. Labored respiratory effort. HEART: Regular without murmurs or gallops. EXTREMITIES: Warm and pink. No pitting edema. No ischemic changes. IMPRESSION AND PLAN: Respiratory failure secondary to suspected underlying pneumonia with chronic respiratory disease including pulmonary fibrosis complicated by ischemic heart disease and chronic atrial fibrillation. Recent diagnosis of small cell carcinoma of the lung was made by transcutaneous biopsy. Potential for nosocomial infection at time of procedure is also recognized. We will await blood culture results. Continue with broad- spectrum antibiotic therapy, oxygen supplementation, and bronchodilators. We will provide morphine and Ativan as needed for respiratory distress and restlessness. His is agreeable to a trial of BiPAP therapy. If he does not tolerate this, will resume use of supplemental oxygen and supportive cares. [facility] services have been consulted today. Family members have been notified of his admission. Condition is grave and likely terminal. Keven Marino MD /[id number]
--- NOTE | 2021-05-30 11:01 | PCM.DCSUM1 ---
Discharge Summary - Hospital Course Brief History: 85-year-old male with history of pulmonary fibrosis with oxygen dependence, new diagnosis of small cell lung cancer who presented with rapidly progressive shortness of breath. He was admitted for management of combination of pneumonia as well as congestive heart failure with severe hypoxic respiratory failure superimposed on his chronic medical problems. - Discharge Data Discharge Date: 05/29/21 Discharge Disposition: 20 Preliminary Cause of *Q: Respiratory Failure Condition: Good - Referral to Home Health Primary Care Physician: Daphney Vences MD - Patient Summary/Data Consults: Consultations 05/29/21 08:21 Consult to Spiritual Care [CONS] Routine Spiritual Care Reason for Consult: end of life support Hospital Course: Mynor presented to the emergency room with acute and progressive shortness of breath. He was in significant respiratory distress upon arrival to the emergency room. He required a large quantity of supplemental oxygen at the time of presentation. Work-up in the emergency room revealed mild leukocytosis, hyponatremia and a mildly elevated troponin at 0.12. Chest x-ray suggested pneumonitis versus pulmonary edema. Covid testing was negative. The patient had recently found out that his lung mass was a small cell lung cancer and he had underlying pulmonary fibrosis that caused him to be oxygen dependent. Given the severity of his respiratory difficulties at presentation discussions were held about how aggressive to be with his interventions. He did wish to be a DO NOT RESUSCITATE and DO NOT INTUBATE. He was interested in a trial of antibiotics and bronchodilators with the hope that maybe he could get better. He did understand that this was a dire situation and the possibility that he would survive was quite low. He was admitted to the hospital and started on broad-spectrum antibiotics. Unfortunately his respiratory status declined throughout the course of the hospital stay. He did receive increasing doses of supplemental oxygen and was even tried on noninvasive ventilation for a while. Despite this his respiratory status declined further. Aggressive comfort measures were increased and the patient peacefully on the evening of May 29. No attempts at resuscitation were made per his previously discussed wishes. Cause of is a combination of pneumonia and his chronic pulmonary fibrosis. - Discharge Plan Home Medications: Home Meds Acetaminophen [Tylenol] 650 mg PO Q6H PRN 05/26/18 [History] Albuterol Sulfate [Proair Hfa] 2 puff IH Q6H PRN 05/26/18 [History] Budesonide/Formoterol [Symbicort 80-4.5 MCG] 2 puff INH BID 05/26/18 [History] Cholecalciferol (Vitamin D3) [Vitamin D3] 1,000 units PO DAILY 05/26/18 [History] Docusate Sodium [Colace] 100 mg PO DAILY 05/26/18 [History] Gabapentin [Neurontin] 600 mg PO Q6H 05/26/18 [History] Hydroxychloroquine Sulfate [Plaquenil] 200 mg PO DAILY 05/26/18 [History] Multivitamin with Minerals [Multiple Vitamin] 1 tab PO DAILY 05/26/18 [History] Omeprazole 20 mg PO DAILY 05/26/18 [History] azaTHIOprine [Imuran] 125 mg PO DAILY 05/26/18 [History] traMADol HCl [Ultram] 50 - 100 mg PO BID PRN 05/26/18 [History] Apixaban [Eliquis] 5 mg PO BID 03/26/20 [History] Cetirizine [ZyrTEC] 10 mg PO DAILY 03/26/20 [History] Metoprolol Succinate [Toprol Xl] 12.5 mg PO DAILY 03/26/20 [History] predniSONE [Prednisone] 5 mg PO ASDIRECTED 03/26/20 [History] Aspirin [Halfprin] 81 mg PO DAILY 05/28/21 [History] DULoxetine [Cymbalta] 20 mg PO DAILY 05/28/21 [History] Tamsulosin [Tamsulosin 24 Hr] 0.4 mg PO DAILY 05/28/21 [History] Forms: ED Department Discharge Referrals: Daphney Vences MD [Primary Care Provider] - - Discharge Summary/Plan Comment DC Time >30 min.: No Total # of Minutes for Discharge Time: 15 - Patient Data Vitals - Most Recent: Last Vital Signs Temp 36.9 C 05/29/21 19:13 Pulse 73 05/29/21 19:13 Resp 36 H 05/29/21 19:13 BP 85/28 L 05/29/21 19:13 Pulse Ox 83 L 05/29/21 19:13 Weight - Most Recent: 77.111 kg I&O - Last 24 hours: Intake & Output 05/29/21 05/30/21 05/30/21 22:59 06:59 14:59 Intake Total 200 Output Total 475 Balance -275 DALI Results - Last 24 hrs: Microbiology 05/28/21 18:20 Aerobic Blood Culture - Preliminary Blood - Arm, Right NO GROWTH AFTER 1 DAY Anaerobic Blood Culture - Preliminary NO GROWTH AFTER 1 DAY 05/28/21 18:05 Aerobic Blood Culture - Preliminary Blood - Arm, Right NO GROWTH AFTER 1 DAY Anaerobic Blood Culture - Preliminary NO GROWTH AFTER 1 DAY Med Orders - Current: Current Medications Discontinued Medications Acetaminophen (Acetaminophen 325 Mg Tab, 50 Tab Bulk Bottle) 650 mg PO Q6H PRN PRN Reason: Pain Acetaminophen (Acetaminophen 325 Mg Tab) 650 mg PO Q6H PRN PRN Reason: Pain Albuterol/Ipratropium (Albuterol/Ipratropium 3.0-0.5 Mg/3 Ml Neb Soln) 3 ml NEB Q4H PRN PRN Reason: Shortness of Breath Last Admin: 05/29/21 00:48 Dose: 3 ml Documented by: Apixaban (Apixaban 5 Mg Tab) 5 mg PO BID [facility] Last Admin: 05/29/21 22:31 Dose: Not Given Documented by: Aspirin (Aspirin 81 Mg Tab.Ec) 81 mg PO DAILY [facility] Last Admin: 05/29/21 08:50 Dose: Not Given Documented by: Azathioprine (Azathioprine 50 Mg Tab) 125 mg PO DAILY [facility] Last Admin: 05/29/21 08:50 Dose: Not Given Documented by: Cetirizine HCl (Cetirizine 10 Mg Tab) 10 mg PO DAILY [facility] Last Admin: 05/29/21 08:50 Dose: Not Given Documented by: Docusate Sodium (Docusate Sodium 100 Mg Cap) 100 mg PO DAILY [facility] Last Admin: 05/29/21 08:50 Dose: Not Given Documented by: Duloxetine HCl (Duloxetine 20 Mg Cap) 20 mg PO DAILY [facility] Last Admin: 05/29/21 08:50 Dose: Not Given Documented by: Furosemide (Furosemide 40 Mg/4 Ml Vial) 40 mg IVPUSH ONETIME ONE Stop: 05/28/21 18:26 Last Admin: 05/28/21 18:45 Dose: 40 mg Documented by: Furosemide (Furosemide 40 Mg/4 Ml Vial) 80 mg IVPUSH ONETIME ONE Stop: 05/29/21 09:01 Last Admin: 05/29/21 09:10 Dose: 80 mg Documented by: Gabapentin (Gabapentin 300 Mg Cap) 600 mg PO Q6H [facility] Last Admin: 05/29/21 23:59 Dose: Not Given Documented by: Hydroxychloroquine Sulfate (Hydroxychloroquine 200 Mg Tab) 200 mg PO DAILY [facility] Last Admin: 05/29/21 08:50 Dose: Not Given Documented by: Ceftriaxone Sodium 1 gm/ (Sodium Chloride) 50 mls @ 100 mls/hr IV ONETIME ONE Stop: 05/28/21 18:55 Last Admin: 05/28/21 18:51 Dose: 100 mls/hr Documented by: Azithromycin 500 mg/ Sodium (Chloride) 250 mls @ 250 mls/hr IV ONETIME ONE Stop: 05/28/21 19:51 Last Admin: 05/28/21 20:15 Dose: 250 mls/hr Documented by: Azithromycin 250 mg/ Sodium (Chloride) 150 mls @ 150 mls/hr IV Q24H [facility] Last Admin: 05/29/21 16:39 Dose: 150 mls/hr Documented by: Ceftriaxone Sodium 1 gm/ (Sodium Chloride) 50 mls @ 100 mls/hr IV Q24H [facility] Ceftriaxone Sodium 1 gm/ (Sodium Chloride) 50 mls @ 100 mls/hr IV Q24H [facility] Last Admin: 05/29/21 17:43 Dose: 100 mls/hr Documented by: Lorazepam (Lorazepam Oral Concentrate 1mg/0.5ml U/D) 1 mg BUCCAL Q2H PRN PRN Reason: Anxiety Last Admin: 05/29/21 18:27 Dose: 1 mg Documented by: Metoprolol Succinate (Metoprolol Succinate 25 Mg Tab.Er) 12.5 mg PO DAILY [facility] Last Admin: 05/29/21 08:50 Dose: Not Given Documented by: Mometasone Furoate/Formoterol Fumar (Formoterol/Mometasone 100-5 Mcg 8.8 Gm Inhaler) 0 puff IH BIDRT [facility] Last Admin: 05/29/21 22:31 Dose: Not Given Documented by: Morphine Sulfate (Morphine 2 Mg/Ml Syringe) 2 mg IVPUSH Q1H PRN PRN Reason: Pain Last Admin: 05/29/21 19:40 Dose: 2 mg Documented by: Pantoprazole Sodium (Pantoprazole 40 Mg Tab.Cr) 40 mg PO ACBREAKFAST [facility] Last Admin: 05/29/21 08:34 Dose: Not Given Documented by: Sodium Chloride (Sodium Chloride 0.9% 10 Ml Syringe) 10 ml FLUSH ASDIRECTED PRN PRN Reason: Keep Vein Open Tramadol HCl (Tramadol 50 Mg Tab) 100 mg PO BID PRN PRN Reason: Pain
== END 2021-05-29 23:03 | disposition expired | DRG 193 ==
LOC: JP.ED 17:31 → JP.2SS 20:40
PROVIDERS: ADMIT Family Medicine; ATTEND Internal Medicine
PROC: 5A09357 Assistance with Respiratory Ventilation, Less than 24 Consecutive Hours, Continuous Positive Airway Pressure (ICD-10-PCS; principal; 2021-05-28)
DX: J18.9 Pneumonia, unspecified organism (principal); J96.01 Acute respiratory failure with hypoxia; E87.1 Hypo-osmolality and hyponatremia; I48.20 Chronic atrial fibrillation, unspecified; C34.90 Malignant neoplasm of unspecified part of unspecified bronchus or lung; D84.821 Immunodeficiency due to drugs; K59.00 Constipation, unspecified; E78.00 Pure hypercholesterolemia, unspecified; K21.9 Gastro-esophageal reflux disease without esophagitis; K44.9 Diaphragmatic hernia without obstruction or gangrene; Z51.5 Encounter for palliative care; M54.9 Dorsalgia, unspecified; M19.90 Unspecified osteoarthritis, unspecified site; M54.2 Cervicalgia; R45.1 Restlessness and agitation; Z96.0 Presence of urogenital implants; G62.9 Polyneuropathy, unspecified; I77.6 Arteritis, unspecified; Z66 Do not resuscitate; R79.89 Other specified abnormal findings of blood chemistry; R33.9 Retention of urine, unspecified; G89.29 Other chronic pain; M19.019 Primary osteoarthritis, unspecified shoulder; J84.10 Pulmonary fibrosis, unspecified; I11.0 Hypertensive heart disease with heart failure; H54.7 Unspecified visual loss; I50.9 Heart failure, unspecified; K22.4 Dyskinesia of esophagus; I25.10 Atherosclerotic heart disease of native coronary artery without angina pectoris; Z20.822 Contact with and (suspected) exposure to COVID-19; Z79.51 Long term (current) use of inhaled steroids; Z98.41 Cataract extraction status, right eye; Z98.42 Cataract extraction status, left eye; Z79.52 Long term (current) use of systemic steroids; Z95.5 Presence of coronary angioplasty implant and graft; Z86.79 Personal history of other diseases of the circulatory system; Z87.09 Personal history of other diseases of the respiratory system; Z99.81 Dependence on supplemental oxygen; Z99.89 Dependence on other enabling machines and devices; Z79.899 Other long term (current) drug therapy; Z79.01 Long term (current) use of anticoagulants; Z98.890 Other specified postprocedural states; Z90.49 Acquired absence of other specified parts of digestive tract; Z83.6 Family history of other diseases of the respiratory system; Z46.6 Encounter for fitting and adjustment of urinary device; Z87.891 Personal history of nicotine dependence; Z79.1 Long term (current) use of non-steroidal anti-inflammatories (NSAID); Z87.19 Personal history of other diseases of the digestive system; Z95.828 Presence of other vascular implants and grafts; Z79.82 Long term (current) use of aspirin
CPT/HCPCS: 36415; 71045; 80053; 81001; 83605; 84484; 85025; 87040; 94640; 94660; 94762; 96365; 96367; 96375; 99285-25; A9270-GY; J0456; J0696; J1940; J2270; J7050; J7620-GY; U0002